=== PATIENT | male | born 1990 | race Caucasian/White ===

== ENCOUNTER 2017-04-29 20:50 | Emergency (ER) | payer SELFPAY ==
[2017-04-29 21:07] VITALS: TEMP 97.4
[2017-04-29 21:51] LABS: BASOPHILS % (AUTO) 1 % (0-3); EOSINOPHILS % (AUTO) 2 % (0-9); HEMATOCRIT 49 % (39-53); MEAN CORPUSCULAR HGB CONC 35.1 gm/dl (32.0-36.0); MEAN CORPUSCULAR VOLUME 87 fL (80-100); MONOCYTES % (AUTO) 5.8 % (0-12); NEUTROPHILS % (AUTO) 54.8 % (37-80)
[2017-04-29 22:15] LABS: ALBUMIN 4.8 gm/dl (3.4-5.0); ALT 9 IU/L (14-63); CALCIUM 9.6 mg/dl (8.5-10.1); GLOM FILT RATE 98 mL/min (>60); POTASSIUM 3.8 mMol/L (3.5-5.1); SODIUM 139 mMol/L (136-145); THYROID STIMULATING HORMONE 0.579 uIU/ml (0.358-3.740)
[2017-04-29 23:06] LABS: APPEARANCE,URINE Clear; BILIRUBIN,URINE NEGATIVE (NEGATIVE); COLOR,URINE Yellow; GLUCOSE, URINE (UA) NEGATIVE (NEGATIVE); KETONES,URINE TRACE (NEGATIVE); LEUKOCYTE ESTERASE ,URINE NEGATIVE (NEGATIVE); NITRATE,URINE NEGATIVE (NEGATIVE); OCCULT BLOOD,URINE NEGATIVE (NEG-TRACE); UROBILINOGEN,URINE >=8.0 (0.2-1.0 EU)
[2017-04-29 23:38] LABS: AMPHETAMINES POSITIVE (NEGATIVE); METHADONE NEGATIVE (NEGATIVE); OPIATES(OP13) NEGATIVE (NEGATIVE); RBC,URINE 0-1 (0-3AV/HPF); TRICYCLIC ANTIDEPRESSANTS NEGATIVE (NEGATIVE); WBC,URINE 0-1 (0-5AV/HPF)
[2017-04-29 23:39] LABS: OXYCODONE(OXY) NEGATIVE (NEGATIVE); PROPOXYPHENE(PPX) NEGATIVE (NEGATIVE)
[2017-04-30 05:56] VITALS: O2SAT 98
[2017-04-30 07:02] VITALS: BP 120/90; PULSE 84; RESP 18
== END 2017-04-30 08:45 | DRG 880 ==
LOC: ED 20:50
DX: R45.851 Suicidal ideations (principal); F15.10 Other stimulant abuse, uncomplicated; F12.10 Cannabis abuse, uncomplicated
CPT/HCPCS: 36415; 80053; 80305; 80307; 81001; 84443; 85025; 99285

== ENCOUNTER 2017-05-30 18:46 | Emergency (ER) | payer SELFPAY ==
[2017-05-30] MEDS ORDERED: ALBUTEROL/IPRATROPIUM 1 VIAL SOL INH ONE (18:58)
[2017-05-30] MEDS ORDERED: ALBUTEROL/IPRATROPIUM 1 VIAL SOL ONE (18:58)
[2017-05-30] MEDS ORDERED: PREDNISONE 20 MG TAB PO ONE (18:58)
[2017-05-30] MEDS ORDERED: PREDNISONE 20 MG TAB ONE (18:58)
[2017-05-30 19:01] VITALS: RESP 18; TEMP 97.9
[2017-05-30 19:36] VITALS: BP 96/80; PULSE 87; O2SAT 100
== END 2017-05-30 19:30 | disposition home or self-care (01) | DRG 203 ==
LOC: ED 18:46
DX: J45.901 Unspecified asthma with (acute) exacerbation (principal)
CPT/HCPCS: 99283; J7620